=== PATIENT | female | born 1950 | race Caucasian/White ===

== ENCOUNTER 2016-12-15 09:23 | Inpatient (IN) ==
[2016-12-15] MEDS ORDERED: Lidocaine -MPF 1% 2 ML VIAL ID ONE (09:39)
[2016-12-15] MEDS ORDERED: Albuterol 2.5 MG/3 ML NEBULIZER IH ONE (09:42)
[2016-12-15] MEDS ORDERED: Ringers Solution, Lactated 1,000 ML IVC SCH ×2 (09:45→14:00)
[2016-12-15] MEDS ORDERED: Albuterol 2.5 MG/3 ML NEBULIZER ONE (09:48)
--- NOTE | 2016-12-15 10:03 | Anesthesia Evaluation PreOp ---
Date of Encounter: 12/15/16 Time of Encounter: 10:01 - Past History Planned Operation: Left reverse vs. anatomic shoulder replacement Cardiac History: HTN, Hyperlipidemia Pulmonary History: COPD ASSISTANT FINANCIAL ACCOUNTANT History: Other Other Medical History: GERD, Other (Anxiety/Depression, OA, Morbid abesity) Alcohol Use: none Drug use: none Medications and Allergies Albuterol Sulfate [Proair Hfa] 2 puff IH PRN PRN 01/13/16 [History] Amitriptyline HCl [Amitriptyline HCl] 50 mg PO HS 01/13/16 [History] Montelukast [Singulair] 10 mg PO HS 01/13/16 [History] Tiotropium [Spiriva] 1 unit IH HS 01/13/16 [History] Triamterene/Hydrochlorothiazid [Dyazide 37.5-25 Capsule] 1 each PO DAILY [History] Lisinopril [Zestril] 10 mg PO DAILY 01/21/16 [History] Anastrozole [Arimidex] 1 mg PO DAILY #90 tablet 03/10/16 [Rx] Citalopram Hydrobromide [Citalopram HBr] 20 mg PO DAILY 03/10/16 [History] Evolocumab [Repatha Sureclick] 140 mg SQ AD 03/10/16 [History] Fluticasone/Vilanterol [Breo Ellipta 100-25 Mcg INH] 1 each IH AD 03/10/16 [ History] Omeprazole 20 mg PO DAILY 03/10/16 [History] HYDROcodone/Acet 5/325 mg [Lacon 5-325 mg] 1 - 2 tab PO Q6H PRN #30 tab [Rx] Calcium Carbonate/Vitamin D3 [Calcium 600 + Vit D Tablet] 1 each PO BID #60 tablet 07/14/16 [Rx] Vitamin E Acid Succinate [Vitamin E] 400 units PO BID #60 tab 08/02/16 [Rx] 3 Allergy/AdvReac Type Severity Reaction Status Date / Time simvastatin Allergy Muscle Pain Verified 11/27/16 15:03 - Meds/Allergy Pre-op Review Medications Reviewed: Yes Allergies Reviewed: Yes Beta Blockers on Current Med List: No Anesthesia Results - Labs Laboratory Tests 07/14/16 11/27/16 11/27/16 15:12 15:13 15:13 Hgb 13.6 Hct 42.2 Plt Count 209 PT 10.3 Sodium Potassium BUN Creatinine Calcium 9.7 Albumin 3.8 11/27/16 15:13 Hgb Hct Plt Count PT Sodium 139 Potassium 3.7 BUN 16 Creatinine 0.77 Calcium Albumin Anesthesia Exam Vital Signs/O2 Sat, Most Current Temp Pulse Resp BP Pulse Ox 98.8 F 101 20 111/67 92 12/15/16 09:53 12/15/16 09:53 12/15/16 09:53 12/15/16 09:53 12/15/16 09:53 Ht 61 in, Wt 267 lbs, BMI 50 - HEENT Mallampati: I Teeth: Missing Denture Type: Upper: Complete (at home) Oral Opening: Greater than 3 - Cardiac Rhythm: Regular - Pulmonary Breath Sounds: bilateral Clear Anesthesia Assess/Plan ASA Score: 3 Anesthetic Plan: General, Regional (For postop pain) Monitoring Plan: Standard Monitors Recovery Plan: PACU Anes Supervising Prov Stmt: I have participated in the evaluation of this patient. Patient informed and consented. Risks, benefits, and alternatives discussed. Patient wishes to proceed.
[2016-12-15] MEDS ORDERED: *HR* Propofol 200 MG/20 ML VIAL IVP ONE (10:11)
[2016-12-15] MEDS ORDERED: *HR* Rocuronium Bromide 50 MG/5 ML VIAL ONE ×2 (10:13→12:36)
[2016-12-15] MEDS ORDERED: *HR* Succinylcholine 200 MG/10 ML VIAL IVP ONE (10:13)
[2016-12-15] MEDS ORDERED: *HR* Phenylephrine 10 MG/ML VIAL ONE (10:13)
[2016-12-15] MEDS ORDERED: Lidocaine -MPF 4% 5 ML AMPUL ONE (10:13)
[2016-12-15] MEDS ORDERED: *HR* Midazolam HCl 2 MG/2 ML VIAL ONE (10:13)
[2016-12-15] MEDS ORDERED: Dexamethasone 4 MG/ML VIAL ONE (10:14)
[2016-12-15] MEDS ORDERED: Lidocaine -MPF 2% 2 ML VIAL ONE (10:14)
[2016-12-15] MEDS ORDERED: Ondansetron 4 MG/2 ML VIAL ONE (10:14)
[2016-12-15] MEDS ORDERED: *HR* FentaNYL (PF) 100 MCG/2 ML VIAL ONE ×2 (10:14→10:16)
[2016-12-15] MEDS ORDERED: Vancomycin 1,750 MG in D5% in Water 250 ML IVPB ONE (10:17)
[2016-12-15] MEDS ORDERED: Vancomycin 1,750 MG in D5% in Water 500 ML IVPB ONE (10:24)
--- NOTE | 2016-12-15 10:31 | History & Physical Report ---
Date of Encounter: 12/15/16 Time of Encounter: 10:30 24 Hour HP Update - Instructions Instructions: If the History and Physical is less than 30 days old and was completed prior to A.M. admission and or procedure and has NOT been updated on calendar day of procedure please complete this update prior to performing procedure. - Update Patient reports changes in Medical Condition: No Changes in examination, assessment, or condition: No Changes in Medication: No Preop tests/diagnostics Reviewed: Yes Surgery Remains Indicated: Yes Consent for Planned Operative Procedure(s) Verified: Yes
[2016-12-15] MEDS ORDERED: Bupivacaine/Clonidine Syringe 1 EACH SYRINGE ONE (10:37)
--- NOTE | 2016-12-15 11:08 | Anesthesia Procedures ---
Date of Encounter: 12/15/16 Time of Encounter: 11:00 Procedures: Anesthesia - Nerve Block Procedure Date: 12/15/16 Time: 11:00 Allergies/Adv Reactions: simvastatin Pre-op Diagnosis: L shoulder rotator cuff arthropathy Surgical Procedure: L reverse vs. anatomic shoulder replacement Checklist: Correct Patient Identifier, Correct procedure, History checked Correct side: Left Blood Thinner: No Monitor Applied: EKG, BP, Pulse Oximetry Supplemental Oxygen via Nasal Cannula (L/min): 3 Sedation: Versed (mg): 2 Sedation: Fentanyl (mcg): 100 Indication: Post Op Analgesia (requested by Dr. Boyer) Pre-op Neuro Deficits: No Block Type: Supraclavicular, Other (ICB, SCP) Catheter placed: No Sterile Technique: Yes Ultrasound used: Yes Anatomy identified: Yes Visual spread of Local: Yes Neuro Stimulation: No Blood on Needle Aspiration: No Smooth Injection of Local: Yes Pain with Injection of Local: No Prep: Chlorhexadine Needle: 22 x 50 mm Stimuplex Local: 0.25% Bupivicaine w/Clonidine 20 mcg/cc Volume (cc): 40 Number of Attempts: 1 Complications: None/effective block Vitals: please see Antoinette BRENNAN's electronic documentation for VS
[2016-12-15] MEDS ORDERED: Ondansetron 4 MG/2 ML VIAL IVP PRN ×2 (11:09→13:49)
[2016-12-15] MEDS ORDERED: *HR* Labetalol 20 MG/4 ML SYRINGE IVP PRN (11:09)
[2016-12-15] MEDS ORDERED: EPHEDrine 50 MG/ML VIAL ONE ×2 (11:30→13:31)
[2016-12-15] MEDS ORDERED: *HR* Vasopressin 20 UNIT/ML VIAL ONE (11:32)
[2016-12-15] MEDS ORDERED: Albumin Human 5% 0 GM/0 ML VIAL ONE (12:19)
[2016-12-15] MEDS ORDERED: Neostigmine Methylsulfate 3 MG/3 ML SYRINGE ONE (13:23)
[2016-12-15] MEDS ORDERED: MOM Conc 10 ML UD.LIQ PO PRN (13:49)
[2016-12-15] MEDS ORDERED: Naloxone 0.4 MG/ML INJ IVP PRN (13:49)
[2016-12-15] MEDS ORDERED: *HR* HYDROcodone/Acet 5/325 mg TABLET PO PRN (13:49)
[2016-12-15] MEDS ORDERED: Acetaminophen 325 MG TABLET PO PRN (13:49)
[2016-12-15] MEDS ORDERED: Sennosides 8.6 MG TABLET PO PRN (13:49)
[2016-12-15] MEDS ORDERED: *HR* OxyCODONE Immed Rel 5 MG TABLET PO PRN (13:49)
[2016-12-15] MEDS ORDERED: Temazepam 15 MG CAPSULE PO PRN (13:49)
[2016-12-15] MEDS ORDERED: *HR* Morphine 2 MG/ML SYRINGE IVP PRN (13:49)
[2016-12-15] MEDS: *HR* HYDROmorphone (PF) 1 MG/ML SYRINGE IVP PRN ×2 (14:10→14:20)
--- NOTE | 2016-12-15 14:20 | Orthopedic Operative Note ---
Date of procedure: 12/15/16 Pre-op diagnosis: left shoulder cuff tear arthropathy Post-op diagnosis: same Procedure: 1. Left reverse total shoulder replacement Indications: This is a 66 who has long history of left shoulder pain with glenohumeral arthritis and B2 glenoid confirmed on radiographs. The patient has failed conservative treatment including anti-inflammatories therapy and injections. The patient has elected for a left reverse shoulder replacement. The risks and benefits of the procedure were fully explained to the patient. These risks include, but are not limited to, the risk of infection, neurovascular injury, continued pain and stiffness of the shoulder, need for further surgery, DVT, PE, loss of limb and loss of life. The patient did understand all of these risks and wishes to proceed. Informed consent was then obtained. Operative procedure: The patient was brought back to the OR suite by the anesthesia staff. The patient was then placed supine on the operating table and all bony prominences were padded. The anesthesiologist then performed successful general anesthetic for the remainder of the case. The head, neck and airway were secured and protected by anesthesia. The bed was elevated about 30 degrees. The left upper extremity was then prepped and draped in the normal sterile orthopedic fashion and placed in the Trimano arm jenkins. Preoperative antibiotics were then given prior to incision. A timeout was performed confirming the correct patient, site and side, procedure to be performed and any allergies. All were in agree and we did proceed. A standard deltopectoral approach was performed. We dissected down through the skin coagulating any bleeders were encountered. The cephalic vein was then identified and taken laterally with the deltoid. Adhesions were cleared from underneath the deltoid and a brown retractor was placed. The interval between the deltoid and pectoralis was then developed and kolbel retractor was placed. A Darrach retractor was then placed under the acromion. The biceps tendon was exposed and identified, and then released proximally. Soft tissue tenodesis of the remaining biceps was then performed. The lateral border of the conjoined tendon was then identified and a subscapularis release was performed. The subscapularis was tagged and was released from the rotator interval down the anterior aspect of the humerus. The capsule was then released from the anterior aspect of the humerus around inferiorly to the back of the humerus. The humerus was subluxed anteriorly and any osteophytes were removed. The supraspinatus had a few fibers intact that were removed. A bone graft was removed from the central aspect of the humeral head using a circular reamer for later use on the glenoid. A humeral osteotomy was then performed, and the humerus was sounded and broached to the appropriate size. Attention was then turned to the glenoid. The humerus was subluxed posteriorly and retractors were placed on the anterior and posterior aspects of the glenoid. A 360 degree release of the subscapularis was performed, and the axillary nerve was palpated and protected throughout the case. Labral debridement was then performed. A central guide pin was placed in the appropriate position on the glenoid. There was significant posterior wear, templated at 24 degrees preop. Central drill hole was drilled and the glenoid was then reamed in accordance with the aequalis reverse shoulder system, only the anterior glenoid was reamed. Bone graft was then shaped so an 8mm thickness graft was present posteriorly and 3 mm graft was present anteriorly. The glenoid baseplate was impacted in place with the bone graft on the glenoid and 4 peripheral drill holes were drilled and filled with the appropriate length screws, 2 in compression, 2 locking. The final glenosphere was then impacted and the glenoid sphere screw was tightened in place. Attention was turned back to the humerus. The humerus was subluxed back anteriorly and a trial humeral stem, tray and poly trials were placed. Trial humeral reverse trays and poly were then placed sequentially until the most appropriate size was identified. The trial size 6 mm poly was tested and had excellent range of motion, and stability was verified. The final component was assembled on the back table and then inserted, and the shoulder was reduced. Again the shoulder was taken through range of motion and there was excellent range of motion and stability. The subscapularis was not able to be brought over for repair. The wound was then copiously irrigated. The deltopectoral interval was tagged with 0 surgilon, and the incision was closed with stratafix in the deep dermal and subcuticular layers. Sterile dressing was placed, the arm was placed in a sling and the patient was taken to the PACU in stable condition. There were no complications during the case. Post op plan: The patient will go into the reverse shoulder protocol. Implants: Tornier aequalis ascend flex 2b standard Humeral tray: Flex low offset, 0 thickness Poly: Flex 36+6 mm Aequalis reverse 25 mm long post baseplate 36x25 mm eccentric +2 glenosphere Complications: none Anesthesia: GETA Surgeon: Jani Boyer Estimated blood loss (cc): 150 Condition: stable Disposition: floor
[2016-12-15] MEDS ORDERED: *HR* Promethazine 25 MG/ML VIAL ONE (14:26)
[2016-12-15] MEDS ORDERED: *HR* Promethazine 25 MG/ML VIAL IVP PRN (14:38)
[2016-12-15] MEDS ORDERED: Metoclopramide 10 MG/2 ML VIAL IVP ONE (14:40)
[2016-12-15] MEDS ORDERED: Famotidine 20 MG/2 ML VIAL IVP ONE (14:40)
[2016-12-15] MEDS ORDERED: Acetaminophen IV 1,000 MG/100 ML INFUS..BTL ONE (14:41)
[2016-12-15] MEDS ORDERED: Metoclopramide 10 MG/2 ML VIAL ONE (14:41)
[2016-12-15] MEDS ORDERED: Famotidine 20 MG/2 ML VIAL ONE (14:42)
[2016-12-15] MEDS ORDERED: Acetaminophen IV 1,000 MG/100 ML INFUS..BTL IVPB ONE (14:57)
--- NOTE | 2016-12-15 15:04 | Anesthesia Evaluation Post Op ---
Date of Encounter: 12/15/16 Time of Encounter: 15:03 - Vital Signs Vital Signs: Vital Signs/O2 Sat, Most Current Temp Pulse Resp BP Pulse Ox 99.4 F 98 16 93/51 95 12/15/16 13:46 12/15/16 14:06 12/15/16 14:06 12/15/16 14:06 12/15/16 14:06 - Lungs Lungs: Clear Ascult./Percussion - Airway Airway: Non-obstructed - Cardiovascular Regular Rate - Mental Status Mental Status: Alert & Oriented, Answers Appropriately - Pain Pain Scale: 0 Pain Scale used: Numeric (1 - 10) - Nausea Vomiting Nausea Vomiting: Not Present - Hydration Hydration: Ice chips, Has not voided
[2016-12-15] MEDS: ceFAZolin 3,000 MG in D5% in Water 100 ML IVPB SCH ×2 (16:23→23:57)
--- NOTE | 2016-12-15 19:58 | Internal Medicine Consult Note ---
Date of Encounter: 12/15/16 Time of Encounter: 19:43 - Assessment and Plan (1) Status post reverse arthroplasty of left shoulder Current Visit: Yes Status: Acute Assessment and plan: Patient is resting comfortably, complaining of minimal pain. Continue reverse arthroplasty of left shoulder protocol (2) HTN (hypertension) Current Visit: Yes Status: Acute Assessment and plan: History of, continue Dyazide and Zestril hemodynamic stable at this time. Qualifiers: Hypertension type: essential hypertension Qualified Code(s): I10 - Essential (primary) hypertension (3) COPD (chronic obstructive pulmonary disease) Current Visit: Yes Status: Acute Assessment and plan: History of, continue to be raw, Briel, tiotropium. Qualifiers: Qualified Code(s): J44.9 - Chronic obstructive pulmonary disease, unspecified Internal Medicine - CN: HPI - Data of Consult Consult date: 12/15/16 Requesting Physician: Jani Byoer MD - Consult Narrative Reason for consult: medical management History of present illness: Ms. Abreu is a 66 year old female with a PMH of breast cancer, HTN, COPD, HLD, OBESITY. Hospitalist is Being consulted for medical management. She appears to be hemodynamically stable, continue minimal pain at surgical site is mostly comfortable. Left shoulder covered with surgical dressings dry and intact. The patient is being seen in consult for medical management status post left reverse shoulder repair at the request of . This consultation has been discussed with , Thank you for consulting the hospitalist service in in your patients care. Should any further needs arise please contact the hospitalist team. Past Med Surg Social Fam HX - Past Medical History Medical history: arthritis, cancer, COPD, GERD, hyperlipidemia, hypertension Psychiatric history: anxiety, depression - Past Surgical History Surgical History: cholecystectomy - Social History Smoking Status: Former smoker Smokeless Tobacco Status: No Alcohol use: none Drug use: none - Family History Mother Living Status: Hx Family Endocrine Disorder: Yes - Cardiovascular Cardiovascular ROS IM: no chest pain, no dyspnea, no dyspnea on exertion - Respiratory Respiratory: no dyspnea on exertion - Musculoskeletal Musculoskeletal ROS IM: numbness, no limited range of motion (Status post surgical intervention) - Integumentary Additional comments: Surgical incision unable to assess due to dressing Internal Medicine - CN: Meds Albuterol Sulfate [Proair Hfa] 2 puff IH Q4H PRN 01/13/16 [History] Amitriptyline HCl [Amitriptyline HCl] 50 mg PO HS 01/13/16 [History] Montelukast [Singulair] 10 mg PO HS 01/13/16 [History] Tiotropium [Spiriva] 1 unit IH HS 01/13/16 [History] Triamterene/Hydrochlorothiazid [Dyazide 37.5-25 Capsule] 1 each PO DAILY [History] Lisinopril [Zestril] 10 mg PO DAILY 01/21/16 [History] Anastrozole [Arimidex] 1 mg PO DAILY #90 tablet 03/10/16 [Rx] Citalopram Hydrobromide [Citalopram HBr] 20 mg PO DAILY 03/10/16 [History] Evolocumab [Repatha Sureclick] 140 mg SQ Q2W 03/10/16 [History] Fluticasone/Vilanterol [Breo Ellipta 100-25 Mcg INH] 1 each IH AD 03/10/16 [ History] Omeprazole 20 mg PO DAILY 03/10/16 [History] Calcium Carbonate/Vitamin D3 [Calcium 600 + Vit D Tablet] 1 each PO BID #60 tablet 07/14/16 [Rx] Vitamin E Acid Succinate [Vitamin E] 400 units PO BID #60 tab 08/02/16 [Rx] Olopatadine HCl [Pataday] 1 drop OP DAILY 12/15/16 [History] 3 Allergy/AdvReac Type Severity Reaction Status Date / Time simvastatin AdvReac Muscle Pain Verified 12/15/16 10:15 Internal Medicine - CN: Exam - Constitutional Vitals: Temp Pulse Resp BP Pulse Ox 98.1 F 95 18 102/67 98 12/15/16 18:31 12/15/16 18:31 12/15/16 18:31 12/15/16 18:31 12/15/16 18:31 General appearance IM: Present: cooperative, A&O X 3, no acute distress, answers questions appropriately - Respiratory Respiratory exam: Present: CTAB - Cardiovascular Cardiovascular exam IM: Present: RRR, +S1, +S2 - Extremities Exam Extremities exam IM: Present: normal capillary refill, warm, radial pulses palpable and symmetrical. Absent: tenderness Internal Medicine - CN: Reslt - Impressions Impressions Shoulder X-Ray 12/15/16 13:49 IMPRESSION: Postoperative change of reverse left shoulder arthroplasty, without hardware complication. D/ / 12/15/2016 14:50:58 Tristian Catherine MD / [email or web address] Interpreting Provider: Tristian Catherine MD Consult Discharge Plan - Plan Referrals: Jani Boyer MD [Non-Partnered Physician] - 12/25/16 8:30 am (& also Sunday , January 15, 2017 at 0830 AM) Satish Thomas MD [Primary Care Provider] -
[2016-12-15] MEDS ORDERED: Tiotropium 18 MCG inhalation IH SCH (21:00)
[2016-12-15 23:26] LABS: Basophils % 0.1 %; Hematocrit 34.7 % (35.3-44.9); Hemoglobin 11.8 g/dL (11.5-15.4); Immature Granulocytes % 0.4 % (0-4); Immature Platelets 2.9 % (1.1-6.1); Lymphocytes # 0.4 K/mcL (0.6-4.6); Lymphocytes % 4.3 %; Mean Corpuscular Hemoglobin 30.8 pg (28.0-33.3); Mean Corpuscular Volume 90.6 fL (83.0-100.0); Mean Platelet Volume 9.6 fL (9.4-12.4); Monocytes # 0.6 K/mcL (0.0-1.3); Monocytes % 6.9 %; Neutrophils # 7.9 K/mcL (1.6-8.9); Platelet Count 217 K/mcL (140-400); Red Blood Count 3.83 M/mcL (3.82-4.97); Red Cell Distribution Width 13.2 % (11.5-14.5); Segmented Neutrophils % 88.3 %
[2016-12-15 23:39] LABS: Calcium 8.9 mg/dL (8.6-10.8); Magnesium 1.6 mg/dL (1.6-2.6); Potassium 4.7 mEq/L (3.5-4.5)
[2016-12-16] MEDS ORDERED: 0.9 % Sodium Chloride 1,000 ML IVC ONE (00:44)
[2016-12-16] MEDS ORDERED: 0.9 % Sodium Chloride 1,000 ML IVC SCH (00:45)
--- NOTE | 2016-12-16 04:25 | Event Note ---
Date of Encounter: 12/16/16 Time of Encounter: 04:24 Patient seen and examined with nurse practitioner. Acute kidney injury and hyperkalemia postoperatively.. Hydrate, encouraged ambulation and incentive spirometry.
[2016-12-16 05:37] LABS: Hematocrit 33.5 % (35.3-44.9); Hemoglobin 11.1 g/dL (11.5-15.4)
[2016-12-16 06:43] VITALS: BP 116/77
[2016-12-16] MEDS ORDERED: PATADAY OP SCH (09:00)
[2016-12-16] MEDS ORDERED: Anastrozole 1 MG TABLET PO SCH (09:00)
[2016-12-16] MEDS ORDERED: amLODIPine 5 MG TABLET PO SCH (09:00)
[2016-12-16] MEDS ORDERED: [Breo Ellipta 100-25 Mcg IH SCH (09:00)
[2016-12-16] MEDS ORDERED: Aspirin Enteric Coated 325 MG Tablet PO SCH (09:00)
--- NOTE | 2016-12-16 09:29 | Discharge Summary ---
Date of Encounter: 12/16/16 Time of Encounter: 09:27 - Discharge Diagnosis (1) Shoulder joint replacement status Priority: Primary Status: Acute Qualifiers: Laterality: left Qualified Code(s): Z96.612 - Presence of left artificial shoulder joint - Discharge Medications Home Medications: Albuterol Sulfate [Proair Hfa] 2 puff IH Q4H PRN 01/13/16 [History] Amitriptyline HCl 50 mg PO HS 01/13/16 [History] Montelukast [Singulair] 10 mg PO HS 01/13/16 [History] Tiotropium [Spiriva] 1 unit IH HS 01/13/16 [History] Triamterene/Hydrochlorothiazid [Dyazide 37.5-25 Capsule] 1 each PO DAILY [History] Lisinopril [Zestril] 10 mg PO DAILY 01/21/16 [History] Anastrozole [Arimidex] 1 mg PO DAILY #90 tablet 03/10/16 [Rx] Citalopram Hydrobromide [Citalopram HBr] 20 mg PO DAILY 03/10/16 [History] Evolocumab [Repatha Sureclick] 140 mg SQ Q2W 03/10/16 [History] Fluticasone/Vilanterol [Breo Ellipta 100-25 Mcg INH] 1 each IH AD 03/10/16 [ History] Omeprazole 20 mg PO DAILY 03/10/16 [History] Calcium Carbonate/Vitamin D3 [Calcium 600 + Vit D Tablet] 1 each PO BID #60 tablet 07/14/16 [Rx] Vitamin E Acid Succinate [Vitamin E] 400 units PO BID #60 tab 08/02/16 [Rx] Olopatadine HCl [Pataday] 1 drop OP DAILY 12/15/16 [History] Allergies/Adverse Reactions: 3 Allergy/AdvReac Type Severity Reaction Status Date / Time simvastatin AdvReac Muscle Pain Verified 12/15/16 10:15 Labs on day of discharge: Labs from last 24 hours 12/16/16 12/15/16 12/15/16 05:25 23:19 23:19 WBC 8.9 RBC 3.83 Hgb 11.1 L 11.8 Hct 33.5 L 34.7 L MCV 90.6 MCH 30.8 MCHC 34.0 RDW 13.2 Plt Count 217 MPV 9.6 Immature Gran % 0.4 Seg Neutrophils % 88.3 Lymphocytes % 4.3 Monocytes % 6.9 Eosinophils % 0.0 Basophils % 0.1 Neutrophils # 7.9 Lymphocytes # 0.4 L Monocytes # 0.6 Eosinophils # 0.0 Basophils # 0.0 Immature Plt Fraction 2.9 Sodium 136 Potassium 4.7 H Chloride 96 L Carbon Dioxide 27 BUN 22 H Creatinine 1.37 H Est GFR ( Amer) 47 L Est GFR (Non-Af Amer) 38 L BUN/Creatinine Ratio 16 Glucose 139 H Calculated Osmolality 288 Calcium 8.9 Magnesium 1.6 - Impressions ITS Impressions Shoulder X-Ray 12/15/16 13:49 IMPRESSION: Postoperative change of reverse left shoulder arthroplasty, without hardware complication. D/ / 12/15/2016 14:50:58 Tristian Catherine MD / nava Interpreting Provider: Tristian Catherine MD Date of admission: 12/15/16 15:19 Primary care physician: Satish Thomas MD Consults: 12/15/16 13:49 Consult to Occupational Therapy [CONS] Routine Comment: post shoulder surgery Reason for Consult: post shoulder surgery Consult to Orthopedic Navigator [CONS] [CONS] Routine Consult to Physical Therapy [CONS] Routine Comment: post shoulder surgery Reason for Consult: post shoulder surgery 12/15/16 14:08 Consult to Hospitalist [CONS] Routine Consulting Provider: Hospitalist Toney Reason for Consult: post op medical management, s/p reverse total shoulder Call Completed: Yes - Patient Status Disposition: Home, Self-Care Condition: Good Functional capacity at discharge: independent ambulation Overall status at discharge: patient is progressing back to baseline - Discharge Instructions Follow Up With: Jani Boyer MD [Non-Partnered Physician] - 12/25/16 8:30 am (& also Sunday , January 15, 2017 at 0830 AM) Satish Thomas MD [Primary Care Provider] - Additional Instructions: POST-OPERATIVE INSTRUCTIONS OPEN SHOULDER SURGERY Your recovery after shoulder surgery can take 6-9 months (and sometimes up to a year) to fully recover. It takes 12 weeks for the repair to fully heal, so it is very important to follow all precautions after surgery as directed. These instructions are intended to help you control swelling and pain, and to allow your shoulder and repaired tissues to heal. These instructions are a general guideline, because no patient or procedure is the same. If needed, your surgeon will give you further specific instructions. SLING You are required to wear your sling at all times (including sleeping) until your follow up appointment. This is necessary to protect your repair. You may remove it to work on your hand, wrist, and elbow exercises, for getting dressed , and for hygiene. Otherwise, it should remain on at all times. ICE It is recommended to ice your shoulder for 20 minutes per hour using an ice pack, Cryo Cuff if provided, or a bag of frozen peas. Ice can be especially helpful for the first several days after surgery. It can then be used as needed for pain and swelling. PAIN BLOCK/PAIN CATHETER The pain block/catheter is intended for pain relief and can last for up to 48 hours. During this time, you will not experience pain and will not be able to move your hand and fingers. It will give you the sensation of your arm being paralyzed. THIS IS TEMPORARY UNTIL THE BLOCK WEARS OFF. It is recommended that you start your pain medication even though you are getting pain relief from the block. It is more difficult to control the pain once the block wears off, then to keep a constant level of the pain medication in your system. For further questions regarding the pain catheter or block, please refer to the pain pump handout given to you from surgery or contact the anesthesia department as directed in the handout. MEDICATIONS You should resume all of your normal medications after shoulder surgery. If you are on blood thinners, these should be discussed with our team to decide on a date to resume them (typically the day after surgery). You will be given prescriptions for pain medications: o Fill the pain medications immediately and begin taking the medications before your nerve block wears off. You are encouraged to take the pain medications as directed on the prescription, and on a regular schedule for the first 3-4 days after surgery. o Do not let the pain get "ahead" of the pain medications since then it will be very difficult for you to get adequate pain control. o Even with the nerve block from surgery, it is recommended that you start on the pain medications after surgery to avoid the block wearing off without having pain medications in your system. o As the pain decreases, you may decrease the pain medication and switch to extra strength Tylenol if needed. o Avoid driving and consuming alcohol while taking pain medication. o Common side effects of pain medication are nausea, drowsiness, and constipation. Consider taking medication with food, and also consider using an [id number] stool softener. DRESSING You may shower 5 days after surgery, as long as there is no drainage coming from the incision and the dressing is intact. If the dressing is leaking, remove it and apply a clean, dry gauze to your shoulder. DO NOT scrub incisions or dressing or soak under water (bathtub, swimming pool or hot tub etc.) Pat the shoulder dry and then re-apply the dressing. If you have drainage more than 5 days after surgery, please contact our office for advice. SLEEPING You may find it more comfortable to sleep in a semi-reclined position (ie. recliner type chair or propped up on pillows) following shoulder surgery. You may return to sleeping in your bed whenever it feels comfortable to do so. EXERCISES You may come out of your sling 3-4 times/day to move your elbow, wrist, and hand and fingers. Remember no active motion of the shoulder (moving the arm without assistance from someone else) until follow up. Your physical therapy appointment is scheduled. FOLLOW UP APPOINTMENTS Your first follow up appointment is generally 10-14 days after surgery. Please refer to your preoperative packet for the date and time or contact the office after surgery to confirm this appointment. Wound care, pain management, and a review of your surgical procedure will be discussed at your first post-operative appointment Additional appointments are scheduled according to the type of surgery that you had and how you are progressing. PRECAUTIONS After anesthesia, rest for 24 hours. General anesthesia may cause a sore throat, jaw discomfort or muscle aches. These symptoms can last for one or two days. Do not drive, drink alcoholic beverages or make any important or legal decisions during this time. Avoid placing arm behind back (tucking in shirt, putting on belt), and do not lean on affected arm or use arm to push up from a seated or laying position. A good general rule is to keep your arm where you can see it. Keep your first few meals after surgery light and drink plenty of fluids, and some people are nauseas after surgery. Smoking increases your risk of infection and can delay healing times. If you smoke, you are encouraged to quit, cut back or at least quit smoking during the post-operative period. Pain medications are important for the first few days after surgery to treat postoperative pain. Addiction, tolerance, and side effects are a big concern. Decrease the pain medications as soon as you can. This is typically after the first few days. Most patients require narcotic pain medications only for the first few weeks after surgery (even large procedures). Prolonged use increases the risk of problems with these medications. NOTIFY THE OFFICE IMMEDIATELY, IF YOU DEVELOP ANY OF THE FOLLOWING: Increased redness or swelling over the incision area Incision area is warm or hot to touch Incision has foul smelling drainage Relentless pain, nausea, vomiting, bleeding or drainage Severe calf pain or chest pain You develop a fever greater than 101.4 more than 48 hours after surgery If you having an emergency that requires immediate attention go to the nearest emergency room or call 911. Please contact the office with any other questions or concerns that you may have regarding your surgery. - Diet and Activity Activity: as per physical therapy Diet: advance to your usual diet - Hospital Course Hospital course: Ms. Abreu is a 66 year old female who had a left reverse shoulder replacement on 12/15/16. She was admitted post operatively and did well, able to be discharged on post op day 1. - Time Spent with Patient Total time spent providing and/or coordinating discharge services: - VTE Documentation of Mechanical Device: Intermittent pneumatic compression device
--- NOTE | 2016-12-16 09:59 | Orthopedics Progress Note ---
Date of Encounter: 12/16/16 Time of Encounter: 09:57 - Assessment and Plan (1) Shoulder joint replacement status Current Visit: Yes Status: Acute POD#1 s/p L reverse TSA -Phase 1 PT -PO pain control -Ok to d/c today Qualifiers: Laterality: left Qualified Code(s): Z96.612 - Presence of left artificial shoulder joint Subjective Interval history: Doing well 1 day s/p L reverse TSA. No N/V. No F/C/NS. Block wearing off Objective Vital signs: Vital Signs Temp Pulse Resp BP Pulse Ox 12/16/16 06:40 97.6 F 95 16 116/77 96 12/16/16 04:13 98.1 F 97 18 118/67 95 12/15/16 22:53 98.0 F 91 17 109/72 93 12/15/16 21:22 97 12/15/16 18:31 98.1 F 95 18 102/67 98 12/15/16 17:34 97.7 F 89 12 107/72 94 12/15/16 16:34 98.2 F 92 16 100/59 94 12/15/16 15:16 99.4 F 93 16 99/59 94 12/15/16 15:06 93 16 109/60 95 12/15/16 14:56 98 14 98/61 95 12/15/16 14:46 99.4 F 91 16 116/51 95 12/15/16 14:36 92 16 103/63 94 12/15/16 14:26 91 16 95/48 94 12/15/16 14:16 99.3 F 97 16 98/61 94 12/15/16 14:06 98 16 93/51 95 12/15/16 13:56 98 16 99/77 96 12/15/16 13:46 99.4 F 98 18 104/35 96 12/15/16 13:30 97.6 F 92 12 100/70 94 12/15/16 10:45 106 18 132/79 92 Intake and Output 12/15/16 12/16/16 12/16/16 23:59 07:59 15:59 Intake Total 100 / 100 100 / 100 220 / 220 Output Total 0 / 0 Balance 100 / 100 100 / 100 220 / 220 Intake: IV Fluids 100 / 100 100 / 100 Ancef 3,000 MG In Dextrose 5% 100 / 100 100 / 100 100 ML @ 200 mls/hr IVPB Q8HR [facility] Rx#:[id number] Oral 220 / 220 Output: Urine 0 / 0 Other: Meal Breakfast Percent of Meal Consumed 100% # Voids 1 # Urine Diapers 1 Dressing c/d/i. SILT ax/m/r/u. Wiggles fingers - Labs CBC & BMP: 12/16/16 05:25 12/15/16 23:19 Labs: Abnormal lab results Hgb 11.1 g/dL (11.5-15.4) L 12/16/16 05:25 Hct 33.5 % (35.3-44.9) L 12/16/16 05:25 Lymphocytes # 0.4 K/mcL (0.6-4.6) L 12/15/16 23:19 Potassium 4.7 mEq/L (3.5-4.5) H 12/15/16 23:19 Chloride 96 mEq/L (98-109) L 12/15/16 23:19 BUN 22 mg/dL (7-20) H 12/15/16 23:19 Creatinine 1.37 mg/dL (0.57-1.11) H 12/15/16 23:19 Est GFR ( Amer) 47 (> 60) L 12/15/16 23:19 Est GFR (Non-Af Amer) 38 (> 60) L 12/15/16 23:19 Glucose 139 mg/dL (70-99) H 12/15/16 23:19 - VTE Documentation of Mechanical Device: Intermittent pneumatic compression device Consult Discharge Plan - Plan Additional Instructions: POST-OPERATIVE INSTRUCTIONS OPEN SHOULDER SURGERY Your recovery after shoulder surgery can take 6-9 months (and sometimes up to a year) to fully recover. It takes 12 weeks for the repair to fully heal, so it is very important to follow all precautions after surgery as directed. These instructions are intended to help you control swelling and pain, and to allow your shoulder and repaired tissues to heal. These instructions are a general guideline, because no patient or procedure is the same. If needed, your surgeon will give you further specific instructions. SLING You are required to wear your sling at all times (including sleeping) until your follow up appointment. This is necessary to protect your repair. You may remove it to work on your hand, wrist, and elbow exercises, for getting dressed , and for hygiene. Otherwise, it should remain on at all times. ICE It is recommended to ice your shoulder for 20 minutes per hour using an ice pack, Cryo Cuff if provided, or a bag of frozen peas. Ice can be especially helpful for the first several days after surgery. It can then be used as needed for pain and swelling. PAIN BLOCK/PAIN CATHETER The pain block/catheter is intended for pain relief and can last for up to 48 hours. During this time, you will not experience pain and will not be able to move your hand and fingers. It will give you the sensation of your arm being paralyzed. THIS IS TEMPORARY UNTIL THE BLOCK WEARS OFF. It is recommended that you start your pain medication even though you are getting pain relief from the block. It is more difficult to control the pain once the block wears off, then to keep a constant level of the pain medication in your system. For further questions regarding the pain catheter or block, please refer to the pain pump handout given to you from surgery or contact the anesthesia department as directed in the handout. MEDICATIONS You should resume all of your normal medications after shoulder surgery. If you are on blood thinners, these should be discussed with our team to decide on a date to resume them (typically the day after surgery). You will be given prescriptions for pain medications: o Fill the pain medications immediately and begin taking the medications before your nerve block wears off. You are encouraged to take the pain medications as directed on the prescription, and on a regular schedule for the first 3-4 days after surgery. o Do not let the pain get "ahead" of the pain medications since then it will be very difficult for you to get adequate pain control. o Even with the nerve block from surgery, it is recommended that you start on the pain medications after surgery to avoid the block wearing off without having pain medications in your system. o As the pain decreases, you may decrease the pain medication and switch to extra strength Tylenol if needed. o Avoid driving and consuming alcohol while taking pain medication. o Common side effects of pain medication are nausea, drowsiness, and constipation. Consider taking medication with food, and also consider using an [id number]-irfeuos stool softener. DRESSING You may shower 5 days after surgery, as long as there is no drainage coming from the incision and the dressing is intact. If the dressing is leaking, remove it and apply a clean, dry gauze to your shoulder. DO NOT scrub incisions or dressing or soak under water (bathtub, swimming pool or hot tub etc.) Pat the shoulder dry and then re-apply the dressing. If you have drainage more than 5 days after surgery, please contact our office for advice. SLEEPING You may find it more comfortable to sleep in a semi-reclined position (ie. recliner type chair or propped up on pillows) following shoulder surgery. You may return to sleeping in your bed whenever it feels comfortable to do so. EXERCISES You may come out of your sling 3-4 times/day to move your elbow, wrist, and hand and fingers. Remember no active motion of the shoulder (moving the arm without assistance from someone else) until follow up. Your physical therapy appointment is scheduled. FOLLOW UP APPOINTMENTS Your first follow up appointment is generally 10-14 days after surgery. Please refer to your preoperative packet for the date and time or contact the office after surgery to confirm this appointment. Wound care, pain management, and a review of your surgical procedure will be discussed at your first post-operative appointment Additional appointments are scheduled according to the type of surgery that you had and how you are progressing. PRECAUTIONS After anesthesia, rest for 24 hours. General anesthesia may cause a sore throat, jaw discomfort or muscle aches. These symptoms can last for one or two days. Do not drive, drink alcoholic beverages or make any important or legal decisions during this time. Avoid placing arm behind back (tucking in shirt, putting on belt), and do not lean on affected arm or use arm to push up from a seated or laying position. A good general rule is to keep your arm where you can see it. Keep your first few meals after surgery light and drink plenty of fluids, and some people are nauseas after surgery. Smoking increases your risk of infection and can delay healing times. If you smoke, you are encouraged to quit, cut back or at least quit smoking during the post-operative period. Pain medications are important for the first few days after surgery to treat postoperative pain. Addiction, tolerance, and side effects are a big concern. Decrease the pain medications as soon as you can. This is typically after the first few days. Most patients require narcotic pain medications only for the first few weeks after surgery (even large procedures). Prolonged use increases the risk of problems with these medications. NOTIFY THE OFFICE IMMEDIATELY, IF YOU DEVELOP ANY OF THE FOLLOWING: Increased redness or swelling over the incision area Incision area is warm or hot to touch Incision has foul smelling drainage Relentless pain, nausea, vomiting, bleeding or drainage Severe calf pain or chest pain You develop a fever greater than 101.4 more than 48 hours after surgery If you having an emergency that requires immediate attention go to the nearest emergency room or call 911. Please contact the office with any other questions or concerns that you may have regarding your surgery. Referrals: Jani Boyer MD [Non-Partnered Physician] - 12/25/16 8:30 am (& also Sunday , January 15, 2017 at 0830 AM) Satish Thomas MD [Primary Care Provider] -
[2016-12-16 10:01] LABS: BUN/Creatinine Ratio 20 (6-26); Blood Urea Nitrogen 18 mg/dL (7-20); Calcium 8.2 mg/dL (8.6-10.8); Carbon Dioxide 24 mEq/L (19-29); Chloride 102 mEq/L (98-109); Glucose 176 mg/dL (70-99); Osmolality,Calculated 292 (280-300); Potassium 4.1 mEq/L (3.5-4.5); Sodium 138 mEq/L (136-145); eGFR For African Americans > 60 (> 60); eGFR For Non-African Americans > 60 (> 60)
[2016-12-16] MEDS ORDERED: FLUARIX QUAD 2017-18 36MOS UP/PF 0.5 ML SYRINGE IM ONE (10:02)
--- NOTE | 2016-12-17 17:40 | Electrocardiograph Report ---
[address] [address] Test Date: 2016-12-15 Pat Name: Barbara Abreu Department: 106 Room: [facility] Gender: F [employer] Trainer: FERNANDA : 1950 Requested By: Siri Flores Order Number: [id number] Reading MD: Clyde Garcia MD Measurements Intervals [place] Rate: 92 P: 20 VA: 146 QRS: 24 QRSD: 94 T: 56 QT: 378 QTc: 428 Interpretive Statements SINUS RHYTHM Electronically Signed On 12-17-2016 17:39:12 EDT by Clyde Garcia MD
--- NOTE | 2016-12-18 06:12 | Electrocardiograph Report ---
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
== END 2016-12-16 11:23 | disposition home or self-care (01) | DRG 483 ==
LOC: SAMDAY 09:23 → 3NENU 15:19
PROVIDERS: ADMIT Orthopaedic Surgery Sports Medicine; ATTEND Orthopaedic Surgery Sports Medicine